=== PATIENT | male | born 1990 | race Two or more races ===

== ENCOUNTER 2022-06-01 13:14 | Outpatient (CLI) | payer BC | END 2022-06-01 13:15 | disposition home or self-care (01) | LOC: LAB 13:14 | PROVIDERS: ATTEND Naturopath | DX: Z11.1 Encounter for screening for respiratory tuberculosis (principal) | CPT/HCPCS: 81599; 86480 ==

== ENCOUNTER 2022-06-20 11:07 | Outpatient (CLI) | payer BC ==
--- NOTE | 2022-06-20 11:33 | XRAY Report ---
PROCEDURE: Chest 2 View X-Ray INDICATIONS: POSITIVE QFT TECHNIQUE: 2 views of the chest were acquired. COMPARISON: None. FINDINGS: Surgical changes and devices: None. Lungs and pleura: No pleural effusions or pneumothorax. Lungs are clear. Mediastinum: Mediastinal contours appear normal. Heart size is normal. Bones and chest wall: No suspicious bony lesions. Overlying soft tissues appear unremarkable. IMPRESSION: No acute process. Reviewed by: Octavio Roque MD on 06/20/2022 11:32 AM PDT Approved by: Octavio Roque MD on 06/20/2022 11:32 AM PDT Station ID: [id number]
== END 2022-06-20 11:08 | disposition home or self-care (01) ==
LOC: DI 11:07
PROVIDERS: ATTEND Naturopath
DX: R76.12 Nonspecific reaction to cell mediated immunity measurement of gamma interferon antigen response without active tuberculosis (principal)